=== PATIENT | male | born 1965 | race Caucasian/White ===

== ENCOUNTER → 2017-04-20 | Outpatient (CLI) | payer MEDICARE, BC ==
--- NOTE | ~2017-04-20 | EE ---
Unit #: [id number] #: [id number] Patient: YUE KAMARA [id number] [address] [address] [id number] O MR#: [id number] NAME: YUE KAMARA : 1965 SEX: M STUDY DATE/TIME: 04/24/2017 UNIT: CEEG ROOM: STUDY DESCRIPTION: EEG Attending Physician: Delon Carmona M.D. Referring Physician: Delon Carmona M.D. Primary Care Physician: Delon Carmona M.D. 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 EEG DESCRIPTION This is an outpatient, digitally recorded multi-montage adult EEG with leads placed according to the International 10-20 system. Hyperventilation and photic stimulation was not done. This EEG shows diffuse background slowing. Most of the activity was 3-5 hertz. The patient continues to have episodic jerking. Nothing suggesting seizure. Nothing suggesting interictal discharges. No lead in. No other issues. The patient did not fall sleep. No seizure status or interictal discharges were seen. Hypoventilation and photic stimulation was not done. IMPRESSION This is an abnormal EEG showing diffuse background slowing , which is indicative of encephalopathy. The question is whether this is static or progressive. I cannot answer that question. Clinical correlation is recommended. EEG like this does not rule out epilepsy. The jerking activity produced muscle artifact so nothing else underneath was seen to suggest seizures. Clinical correlation is recommended. Dictated by... Loyd Saenz/juancarlos TD: 04/25/2017 07:39 JOB #: [id number] Unit #: [id number] #: [id number] Patient: YUE KAMARA NEURODIAGNOSTICS REPORT Page 1 of 1 X Noemy Shen MD NEURODIAGNOSTICS REPORT
== END | disposition home or self-care (01) ==
LOC: CEEG 10:07
DX: G25.3 Myoclonus (principal); Q90.9 Down syndrome, unspecified; G93.40 Encephalopathy, unspecified; R94.01 Abnormal electroencephalogram [EEG]
CPT/HCPCS: 95816